=== PATIENT | female | born 1965 | race Caucasian/White ===

== ENCOUNTER 2018-07-02 16:15 | Inpatient (IN) | payer OTHER ==
[~2018-07-02] VITALS: Ht 162.6 cm; Wt 72.0 kg
[2018-07-02 16:54] LABS: BASOPHILS % (AUTO) 0.2 % (0-1); EOSINOPHILS % (AUTO) 0.4 % (0-6); HEMATOCRIT 37.2 % (35.0-45.0); HEMOGLOBIN 12.7 g/dl (12.0-16.0); LYMPHOCYTES # (AUTO) 0.2 X10'3 (1.1-4.8); LYMPHOCYTES % (AUTO) 1.8 % (21-51); MEAN CORPUSCULAR HEMOGLOBIN 31.3 PG (27.0-31.0); MEAN CORPUSCULAR HGB CONC 34.2 g/dL (33.0-36.5); MEAN CORPUSCULAR VOLUME 91.5 FL (78-98); MEAN PLATELET VOLUME 7.8 FL (7.4-10.4); MONOCYTES # (AUTO) 0.6 X10'3 (0-0.9); MONOCYTES % (AUTO) 4.7 % (2-12); NEUTROPHILS # (AUTO) 11.3 X10'3 (1.8-7.7); NEUTROPHILS % (AUTO) 92.9 % (42-75); PLATELET COUNT 211 X10'3 (140-440); RED BLOOD COUNT 4.06 X10'6 (4.20-5.60); WHITE BLOOD COUNT 12.1 X10'3 (4.5-11.0)
[2018-07-02 17:08] LABS: ALANINE AMINOTRANSFERASE 216 U/L (12-78); ALBUMIN 3.4 G/DL (3.4-5.0); ALBUMIN/GLOBULIN RATIO 0.9 (1.1-1.5); ALKALINE PHOSPHATASE 150 IU/L (46-116); ANION GAP 8 (8-16); ASPARTATE AMINO TRANSFERASE 111 U/L (10-37); BILIRUBIN,TOTAL 2.9 MG/DL (0.1-1.0); BLOOD UREA NITROGEN 16 MG/DL (7-18); BUN/CREATININE RATIO 13.8 (6.6-38.0); CALCIUM 8.9 MG/DL (8.5-10.1); CHLORIDE 102 MMOL/L (99-107); CREATININE 1.16 MG/DL (0.40-0.90); GLUCOSE 160 MG/DL (70-104); INR 1.3 INR; PARTIAL THROMBOPLASTIN TIME 35 SECONDS (22-32); POTASSIUM 3.9 MMOL/L (3.5-5.1); PROTHROMBIN TIME 13.2 SECONDS (9.0-12.0); SODIUM 135 MMOL/L (135-145); TOTAL CARBON DIOXIDE 24.9 MMOL/L (24-32); TOTAL PROTEIN 7.2 G/DL (6.4-8.2); eGFR 49 ML/MIN
[2018-07-02 17:46] LABS: CLARITY,URINE CLEAR (Clear); COLOR,URINE YELLOW (Yellow); GLUCOSE, URINE NEGATIVE (Neg); KETONES,URINE NEGATIVE (Neg); LEUKOCYTE ESTERASE ,URINE LARGE (Neg); OCCULT BLOOD,URINE SMALL (Neg); PH,URINE 6.5 (4.8-8.0); PROTEIN,URINE TRACE mg/dl (Neg); URINE HCG NEGATIVE (NEG); UROBILINOGEN,URINE 0.2 E.U/dL (0.2-1.0)
[2018-07-02 17:50] LABS: UA COLLECTION TYPE CLN CATCH MIDSTREAM
[2018-07-02 17:51] LABS: NITRITES, URINE NEGATIVE (Neg); RBC,URINE 0-2 /HPF (0-2); WBC,URINE 30-50 /HPF (0-4)
[2018-07-02 17:52] LABS: BACTERIA,URINE 1+ /HPF (Neg); MUCUS STRANDS NONE SEEN /LPF (Neg); SQUAMOUS EPITHELIAL CELL,UR FEW /LPF (FEW)
[2018-07-02] MEDS ORDERED: ondansetron/PF 4mg/2ml inj IV ONE ×2 (18:15→20:40)
[2018-07-02] MEDS ORDERED: CefTRIAXone/D5W-Rocephin 1gm 50 ML IV ONE (18:20)
[2018-07-02] MEDS ORDERED: normal saline 1000ML IV soln IVB ONE ×2 (18:20→20:30)
[2018-07-02] MEDS ORDERED: HYDROmorphone inj. 0.5 MG/0.5 ML DISP.SYRIN IV ONE ×2 (18:35→20:40)
[2018-07-02] MEDS ORDERED: iohexol 300mg/ml 100ml inj. ONE (19:12)
[2018-07-02] MEDS ORDERED: ACET-2119 PO (22:06)
[2018-07-02] MEDS ORDERED: LEVO500T2 PO (22:06)
[2018-07-02] MEDS ORDERED: FLO0.4C PO (22:06)
[2018-07-02] MEDS ORDERED: ONDA4TAB6 PO (22:06)
[2018-07-02] MEDS ORDERED: NALO12.5 (22:42)
[2018-07-02] MEDS ORDERED: PHEN-824 PO (22:42)
[2018-07-02] MEDS ORDERED: mag hydrox/Alum hydrox/simeth 30ml oral suspension PO PRN (22:45)
[2018-07-02] MEDS ORDERED: CADD PCA waste documentation MC PRN (22:55)
[2018-07-02] MEDS ORDERED: naloxone 0.4 mg/ml inj IV PRN (22:55)
[2018-07-03] VITALS (18 sets, daily range): BP systolic 88–150; BP diastolic 49–84
--- NOTE | 2018-07-03 00:30 | NUR ---
Received report from Kaylee FONG pt arrived via gurney, ambulated to bed, at bedside, will assess and orient pt to room
[2018-07-03] MEDS: ondansetron/PF 4mg/2ml inj IV PRN (00:39)
[2018-07-03] MEDS: magnesium hydroxide 30ml (MOM) UD suspension PO PRN (00:41)
[2018-07-03] MEDS: acetaminophen 325mg tablet PO PRN ×2 (00:42→08:26)
[2018-07-03] MEDS: HYDROmorphone/NS 1 mg/ml CADD 50 ML IV SCH ×13 (00:49→23:00)
[2018-07-03] MEDS: normal saline 1000ml 1,000 ML IV SCH ×2 (00:49→08:26)
[2018-07-03 05:59] LABS: BASOPHILS % (AUTO) 0.1 % (0-1); EOSINOPHILS % (AUTO) 0.3 % (0-6); HEMATOCRIT 31.2 % (35.0-45.0); HEMOGLOBIN 10.5 g/dl (12.0-16.0); LYMPHOCYTES # (AUTO) 0.2 X10'3 (1.1-4.8); LYMPHOCYTES % (AUTO) 3.2 % (21-51); MEAN CORPUSCULAR HEMOGLOBIN 31.4 PG (27.0-31.0); MEAN CORPUSCULAR HGB CONC 33.6 g/dL (33.0-36.5); MEAN CORPUSCULAR VOLUME 93.7 FL (78-98); MEAN PLATELET VOLUME 8.3 FL (7.4-10.4); MONOCYTES # (AUTO) 0.3 X10'3 (0-0.9); MONOCYTES % (AUTO) 4.4 % (2-12); NEUTROPHILS # (AUTO) 6.1 X10'3 (1.8-7.7); PLATELET COUNT 156 X10'3 (140-440); RED BLOOD COUNT 3.33 X10'6 (4.20-5.60); WHITE BLOOD COUNT 6.6 X10'3 (4.5-11.0)
[2018-07-03 06:14] LABS: ALANINE AMINOTRANSFERASE 123 U/L (12-78); ALBUMIN 2.6 G/DL (3.4-5.0); ALBUMIN/GLOBULIN RATIO 0.8 (1.1-1.5); ALKALINE PHOSPHATASE 122 IU/L (46-116); ANION GAP 9 (8-16); ASPARTATE AMINO TRANSFERASE 50 U/L (10-37); BILIRUBIN,TOTAL 1.8 MG/DL (0.1-1.0); BLOOD UREA NITROGEN 12 MG/DL (7-18); CHLORIDE 106 MMOL/L (99-107); CREATININE 1.09 MG/DL (0.40-0.90); GLUCOSE 106 MG/DL (70-104); POTASSIUM 3.8 MMOL/L (3.5-5.1); SODIUM 139 MMOL/L (135-145); TOTAL CARBON DIOXIDE 23.8 MMOL/L (24-32); TOTAL PROTEIN 5.9 G/DL (6.4-8.2); eGFR 53 ML/MIN
--- NOTE | 2018-07-03 06:28 | NUR ---
Gave report to Jany FONG pt is awake and alert on RA NS running@100mL/hr, Dilaudid CADD normal settings, lymphodema machine at bedside
[2018-07-03] MEDS ORDERED: docusate sod 100mg capsule PO SCH (08:00)
[2018-07-03] MEDS: lactulose 20gm/30ml cup PO SCH ×2 (08:24→20:12)
[2018-07-03] MEDS: phenazopyridine 100mg tablet PO SCH ×3 (08:25→23:57)
[2018-07-03] MEDS: tamsulosin 0.4mg capsule PO SCH (08:25)
--- NOTE | 2018-07-03 10:34 | NUR ---
Called pt. urologist in [place], [facility] office. [phone] to obtain lab blood and urine cultures. MD White requesting the name of the bacteria. Left a message with floor phone number and extension.
--- NOTE | 2018-07-03 11:15 | NUR ---
Urologist from [place] returned message. He will call surgical unit back when he has information available to him. PAGER ID: [phone] MESSAGE: [id number] LEONIE Em - pt has 100.7 axillary temp. Tylenol previously given for pain. Do you want to change the parameters of temp. for me to notify you? pt. requesting fleet enema. Awaiting [place] urologist 4 culture report Jany FONG 2140
[2018-07-03] MEDS ORDERED: iohexol 300 MG/1 ML 50ml polymer ONE (11:49)
[2018-07-03] MEDS ORDERED: ringers solution, lacted 1,000 ML IV SCH (11:52)
[2018-07-03] MEDS ORDERED: labetalol 20mg/4ml (5mg/ml) syringe IV PRN (11:55)
[2018-07-03] MEDS ORDERED: hydrALAZINE 20mg/ml inj. IV PRN (11:55)
[2018-07-03] MEDS ORDERED: ondansetron/PF 4mg/2ml inj IV PRN (11:55)
[2018-07-03] MEDS ORDERED: morphine 4 MG/ML inj SYRINge IV PRN ×2 (11:55)
[2018-07-03] MEDS: potassium Cl 20mEq in NS 1,000 ML IV SCH ×2 (12:00→23:57)
--- NOTE | 2018-07-03 13:34 | NUR ---
order caller urologist from [place] returned phone call with culture results for urine culture. E coli > 100,000 sensitive to Gentamicin and Macrobid. MD White made aware.
--- NOTE | 2018-07-03 13:39 | NUR ---
PAGER ID: [phone] MESSAGE: [id number] LEONIE Em Pt. still requesting fleet enema. Do you want her to have this before sx? loss prevention auditor urologist from [place] said urine culture was E coli >[id number] sensitive to Gentamicin and Macrobid. Jany FONG [id number]
--- NOTE | 2018-07-03 15:28 | NUR ---
Malnutrition consult: Pt admit w/ L kidney stone infection, UTI, and sepsis. Hx chronic constipation and prior anal skin CA s/p chemo/radiation/surgery per MD note. Currently NPO to OR at this time. LBM 3. Pt has no edema/wounds, no significant weakness noted. Unable to obtain wt loss hx since current wt is not scaled and pt in OR. Will monitor for diet advancement and pt wt hx once clinically stable from OR. At this time pt spears snot qualify for malnutrition but further information is pending. Will continue to monitor. Rec: 1. advance diet per MD to regular 2. monitor for ONS needs 3. scaled wt post-op 4. routine bowel care 5. weekly wts Addendum: 07/03/18 at [address] Amended: Links added.
[2018-07-03] MEDS ORDERED: acetaminophen 1,000mg/100ml IV 100 ML IV ONE (15:53)
[2018-07-03] MEDS ORDERED: LIDOcaine 2% (20mg/ml) 5ml vial ONE (15:54)
[2018-07-03] MEDS ORDERED: propofol inj 20 ML IV ONE (15:54)
[2018-07-03] MEDS ORDERED: ketorolac trometh. 30mg/ml inj. ONE (15:57)
--- NOTE | 2018-07-03 16:40 | NUR ---
Received from OR via SURGICAL BED , accompanied by Anesthesiologist DR SUN and report given by Anesthesiolgist. PT PLACED ON O2 AND MONITOR, S/P URETERAL STENT PLACEMENT, GENERAL ANESTH, PT AROUSES TO NAME CALLING AND DENIES ANY PAIN AT THIS TIME, WILL CONT TO ASSESS.
--- NOTE | 2018-07-03 17:20 | NUR ---
Report called to receiving nurse. Transferred via SURGICAL BED TO ROOM [facility]C [facility] . Special Issues communicated to receiving nurse. PT HAD DECLINED NARCOTICS DUE TO TROUBLE WITH CONSTPATION. PT RECEIVED TORADOL AND IV TYLENOL WITH HER ANESTH., SHE ALSO RECEIVED DECADRON AND ZOFRAN PREOP, GIVEN BY ANESTHESIA. SHE STATES SHE FEELS MUCH BETTER THAN BEFORE SURGERY, COMPLAINING OF HER EYES "BURNING", PT'S , JAVI, IS AT BEDSIDE FOR SUPPORT.
[2018-07-03] MEDS ORDERED: CefTRIAXone/D5W-Rocephin 1gm 50 ML IV SCH (18:00)
--- NOTE | 2018-07-03 19:04 | NUR ---
PT IS RESTING COMFORTABLY WITH VISITORS AT BEDSIDE. POST OP VITALS STABLE, LR RUNNING PER ORDER. GAVE REPORT TO MONICA FONG.
--- NOTE | 2018-07-03 19:05 | NUR ---
Patient in room [facility]. I have received report from AJIT Carmichael and had the opportunity to ask questions and assume patient care.
[2018-07-03] MEDS ORDERED: heparin, porcine 5000 units/ml vial SQ SCH (20:00)
[2018-07-03] MEDS: docusate sod 100mg capsule PO SCH (20:12)
[2018-07-03] MEDS: lactobacillus rhamnosus 10,000 MMU CELLS/CAPSULE PO SCH (20:12)
[2018-07-04] VITALS: BP 107/62
[2018-07-04] MEDS: HYDROmorphone/NS 1 mg/ml CADD 50 ML IV SCH ×12 (01:00→23:00)
[2018-07-04 05:31] LABS: BASOPHILS % (AUTO) 0 % (0-1); EOSINOPHILS % (AUTO) 0.1 % (0-6); HEMATOCRIT 29.8 % (35.0-45.0); HEMOGLOBIN 9.9 g/dl (12.0-16.0); LYMPHOCYTES # (AUTO) 0.4 X10'3 (1.1-4.8); LYMPHOCYTES % (AUTO) 9.6 % (21-51); MEAN CORPUSCULAR HEMOGLOBIN 31.2 PG (27.0-31.0); MEAN CORPUSCULAR HGB CONC 33.2 g/dL (33.0-36.5); MEAN CORPUSCULAR VOLUME 93.9 FL (78-98); MEAN PLATELET VOLUME 8.5 FL (7.4-10.4); MONOCYTES # (AUTO) 0.3 X10'3 (0-0.9); MONOCYTES % (AUTO) 7.1 % (2-12); NEUTROPHILS # (AUTO) 3.3 X10'3 (1.8-7.7); NEUTROPHILS % (AUTO) 83.2 % (42-75); PLATELET COUNT 133 X10'3 (140-440); RED BLOOD COUNT 3.17 X10'6 (4.20-5.60); RED CELL DISTRIBUTION WIDTH 13.1 % (11.5-14.5)
[2018-07-04 05:47] LABS: ALANINE AMINOTRANSFERASE 84 U/L (12-78); ALBUMIN 2.4 G/DL (3.4-5.0); ALBUMIN/GLOBULIN RATIO 0.7 (1.1-1.5); ALKALINE PHOSPHATASE 121 IU/L (46-116); ANION GAP 7 (8-16); ASPARTATE AMINO TRANSFERASE 26 U/L (10-37); BILIRUBIN,TOTAL 0.9 MG/DL (0.1-1.0); BLOOD UREA NITROGEN 14 MG/DL (7-18); BUN/CREATININE RATIO 15.6 (6.6-38.0); CALCIUM 8.3 MG/DL (8.5-10.1); CHLORIDE 107 MMOL/L (99-107); GLUCOSE 156 MG/DL (70-104); POTASSIUM 4.5 MMOL/L (3.5-5.1); SODIUM 139 MMOL/L (135-145); TOTAL CARBON DIOXIDE 24.7 MMOL/L (24-32); TOTAL PROTEIN 5.8 G/DL (6.4-8.2); eGFR 66 ML/MIN
--- NOTE | 2018-07-04 06:20 | NUR ---
Problems reprioritized. Patient report given, questions answered & plan of care reviewed with AJIT Carmichael.
[2018-07-04 07:30] VITALS: BP 122/62
[2018-07-04] MEDS: potassium Cl 20mEq in NS 1,000 ML IV SCH ×2 (08:00→10:19)
--- NOTE | 2018-07-04 08:25 | NUR ---
PAGER ID: [phone] MESSAGE: [id number] dorothy GIRARD, URINE CULTURE RESULTS: MDRO POSITIVE @ 0800 LUL FONG 7924 PT MADE AWARE OF LAB RESULTS WELL
[2018-07-04] MEDS: lactobacillus rhamnosus 10,000 MMU CELLS/CAPSULE PO SCH ×2 (08:30→19:34)
[2018-07-04] MEDS: lactulose 20gm/30ml cup PO SCH ×2 (08:30→19:34)
[2018-07-04] MEDS: phenazopyridine 100mg tablet PO SCH ×3 (08:30→23:57)
[2018-07-04] MEDS: docusate sod 100mg capsule PO SCH ×2 (08:30→19:34)
[2018-07-04] MEDS: tamsulosin 0.4mg capsule PO SCH (08:30)
--- NOTE | 2018-07-04 08:40 | NUR ---
PAGER ID: [phone] MESSAGE: [id number] PLATBECCA LOW 133- WHAT PARAMETERS TO HOLD HEPARIN INJECTION?
[2018-07-04] MEDS: meropenem inj 1 GM in normal saline 100ml IV soln 100 ML IV SCH ×3 (10:19→23:57)
[2018-07-04] MEDS: normal saline 1000ml 1,000 ML IV SCH (12:50)
--- NOTE | 2018-07-04 13:33 | NUR ---
F/u: MARGARET d/w RN for scaled wt given pt wt still stated. Given no weakness, no edema/wounds, and PO 50-75% regular diet s/p L ureteral stent placement w/ BMI 27 pt does not qualify for malnutrition at this time. Will monitor for new wt and additional criteria this admit. Addendum: 07/04/18 at [address] Amended: Links added.
[2018-07-04] MEDS: magnesium hydroxide 30ml (MOM) UD suspension PO PRN (14:57)
--- NOTE | 2018-07-04 18:40 | NUR ---
Patient in room [facility] 353. I have received report from Jany FONG and had the opportunity to ask questions and assume patient care. Patient has and daughter at bedside, both will be flying to [place] tomorrow morning, family saying goodbyes. Will provide emotional support to patient and continue to monitor.
--- NOTE | 2018-07-04 18:47 | NUR ---
pt. in stable condition resting comfortably in bed. Gave report to Kassidy FONG.
[2018-07-04 20:00] VITALS: BP 137/89
[2018-07-04] MEDS: ondansetron/PF 4mg/2ml inj IV PRN (20:59)
--- NOTE | 2018-07-04 23:00 | NUR ---
Problems reprioritized. Patient report given, questions answered & plan of care reviewed with Etta FONG.
--- NOTE | 2018-07-04 23:00 | NUR ---
Patient in room [facility] 353. I have received report from [place] and had the opportunity to ask questions and assume patient care.
[2018-07-05] MEDS ORDERED: famotidine 20mg tablet PO ONE (00:05)
[2018-07-05] MEDS: HYDROmorphone/NS 1 mg/ml CADD 50 ML IV SCH ×10 (01:00→19:00)
[2018-07-05] MEDS: normal saline 1000ml 1,000 ML IV SCH ×2 (04:03→17:49)
[2018-07-05 04:30] VITALS: BP 113/64
[2018-07-05 06:13] LABS: BASOPHILS % (AUTO) 0.2 % (0-1); EOSINOPHILS % (AUTO) 0.5 % (0-6); HEMATOCRIT 29.9 % (35.0-45.0); LYMPHOCYTES # (AUTO) 0.7 X10'3 (1.1-4.8); LYMPHOCYTES % (AUTO) 12.3 % (21-51); MEAN CORPUSCULAR HEMOGLOBIN 31.2 PG (27.0-31.0); MEAN CORPUSCULAR HGB CONC 33.6 g/dL (33.0-36.5); MEAN CORPUSCULAR VOLUME 93.1 FL (78-98); MEAN PLATELET VOLUME 8.7 FL (7.4-10.4); MONOCYTES # (AUTO) 0.5 X10'3 (0-0.9); MONOCYTES % (AUTO) 8.4 % (2-12); NEUTROPHILS # (AUTO) 4.8 X10'3 (1.8-7.7); NEUTROPHILS % (AUTO) 78.6 % (42-75); PLATELET COUNT 172 X10'3 (140-440); RED BLOOD COUNT 3.21 X10'6 (4.20-5.60); RED CELL DISTRIBUTION WIDTH 12.9 % (11.5-14.5); WHITE BLOOD COUNT 6.1 X10'3 (4.5-11.0)
[2018-07-05 06:25] LABS: ANION GAP 8 (8-16); CHLORIDE 110 MMOL/L (99-107); GLUCOSE 97 MG/DL (70-104); POTASSIUM 3.7 MMOL/L (3.5-5.1); SODIUM 143 MMOL/L (135-145); TOTAL CARBON DIOXIDE 24.6 MMOL/L (24-32)
[2018-07-05 06:26] LABS: ALANINE AMINOTRANSFERASE 115 U/L (12-78); ALBUMIN 2.3 G/DL (3.4-5.0); ALBUMIN/GLOBULIN RATIO 0.7 (1.1-1.5); ALKALINE PHOSPHATASE 130 IU/L (46-116); ASPARTATE AMINO TRANSFERASE 67 U/L (10-37); BILIRUBIN,TOTAL 0.7 MG/DL (0.1-1.0); BLOOD UREA NITROGEN 16 MG/DL (7-18); TOTAL PROTEIN 5.7 G/DL (6.4-8.2); eGFR 58 ML/MIN
--- NOTE | 2018-07-05 06:44 | NUR ---
Problems reprioritized. Patient report given, questions answered & plan of care reviewed with BORIS.
[2018-07-05 07:00] VITALS: BP 132/62
[2018-07-05] MEDS: phenazopyridine 100mg tablet PO SCH ×2 (07:32→16:07)
[2018-07-05] MEDS: docusate sod 100mg capsule PO SCH ×2 (07:32→20:00)
[2018-07-05] MEDS: lactobacillus rhamnosus 10,000 MMU CELLS/CAPSULE PO SCH ×2 (07:32→21:28)
[2018-07-05] MEDS: tamsulosin 0.4mg capsule PO SCH (07:32)
[2018-07-05] MEDS: famotidine 20mg tablet PO SCH ×2 (07:33→21:28)
[2018-07-05] MEDS: lactulose 20gm/30ml cup PO SCH ×2 (07:33→21:28)
[2018-07-05] MEDS: meropenem inj 1 GM in normal saline 100ml IV soln 100 ML IV SCH ×2 (07:37→16:07)
[2018-07-05 11:00] VITALS: BP 123/70
[2018-07-05] MEDS: acetaminophen 325mg tablet PO PRN (16:33)
--- NOTE | 2018-07-05 18:27 | NUR ---
Problems reprioritized. Patient report given, questions answered & plan of care reviewed with AIJT Germain.
--- NOTE | 2018-07-05 18:31 | NUR ---
Patient in room [facility] 353. I have received report from AJIT Rye and had the opportunity to ask questions and assume patient care. Addendum: 07/05/18 at 1833 by Gale Lewis RN Amended: Links added.
[2018-07-05 19:00] VITALS: BP 101/55
[2018-07-05 23:30] VITALS: BP 129/60
[2018-07-06] MEDS: phenazopyridine 100mg tablet PO SCH ×4 (00:14→23:35)
[2018-07-06] MEDS: meropenem inj 1 GM in normal saline 100ml IV soln 100 ML IV SCH ×4 (00:14→23:36)
[2018-07-06] MEDS: acetaminophen 325mg tablet PO PRN ×2 (00:21→17:35)
[2018-07-06 05:49] LABS: BASOPHILS % (AUTO) 0.1 % (0-1); EOSINOPHILS # (AUTO) 0.2 X10'3 (0-0.9); HEMATOCRIT 30.8 % (35.0-45.0); HEMOGLOBIN 10.5 g/dl (12.0-16.0); LYMPHOCYTES # (AUTO) 0.8 X10'3 (1.1-4.8); LYMPHOCYTES % (AUTO) 15.5 % (21-51); MEAN CORPUSCULAR HEMOGLOBIN 31.5 PG (27.0-31.0); MEAN CORPUSCULAR HGB CONC 34.3 g/dL (33.0-36.5); MEAN CORPUSCULAR VOLUME 91.9 FL (78-98); MEAN PLATELET VOLUME 8.4 FL (7.4-10.4); MONOCYTES # (AUTO) 0.8 X10'3 (0-0.9); MONOCYTES % (AUTO) 14.3 % (2-12); NEUTROPHILS # (AUTO) 3.6 X10'3 (1.8-7.7); NEUTROPHILS % (AUTO) 67.1 % (42-75); PLATELET COUNT 213 X10'3 (140-440); RED BLOOD COUNT 3.35 X10'6 (4.20-5.60); RED CELL DISTRIBUTION WIDTH 13.2 % (11.5-14.5); WHITE BLOOD COUNT 5.4 X10'3 (4.5-11.0)
[2018-07-06 06:04] LABS: ALANINE AMINOTRANSFERASE 112 U/L (12-78); ALBUMIN 2.4 G/DL (3.4-5.0); ALBUMIN/GLOBULIN RATIO 0.6 (1.1-1.5); ALKALINE PHOSPHATASE 162 IU/L (46-116); ANION GAP 5 (8-16); ASPARTATE AMINO TRANSFERASE 53 U/L (10-37); BILIRUBIN,TOTAL 0.7 MG/DL (0.1-1.0); BLOOD UREA NITROGEN 14 MG/DL (7-18); BUN/CREATININE RATIO 12.7 (6.6-38.0); CALCIUM 8.4 MG/DL (8.5-10.1); CHLORIDE 109 MMOL/L (99-107); GLUCOSE 94 MG/DL (70-104); POTASSIUM 3.5 MMOL/L (3.5-5.1); SODIUM 144 MMOL/L (135-145); TOTAL PROTEIN 6.1 G/DL (6.4-8.2); eGFR 52 ML/MIN
--- NOTE | 2018-07-06 06:36 | NUR ---
Problems reprioritized. Patient report given, questions answered & plan of care reviewed with AJIT Felipe. Addendum: 07/06/18 at 0637 by Gale Lewis RN Amended: Links added.
--- NOTE | 2018-07-06 07:02 | NUR ---
Patient in room [facility] 353. I have received report from Jessa FONG and had the opportunity to ask questions and assume patient care.
[2018-07-06 07:27] VITALS: BP 127/74
[2018-07-06] MEDS: lactulose 20gm/30ml cup PO SCH (08:00)
[2018-07-06] MEDS: docusate sod 100mg capsule PO SCH ×2 (08:00→20:00)
[2018-07-06] MEDS: famotidine 20mg tablet PO SCH ×2 (09:19→20:12)
[2018-07-06] MEDS: lactobacillus rhamnosus 10,000 MMU CELLS/CAPSULE PO SCH ×2 (09:19→20:12)
[2018-07-06] MEDS: tamsulosin 0.4mg capsule PO SCH (09:20)
[2018-07-06] MEDS ORDERED: LIDOcaine 2% 5ml jelly TOP PRN (10:00)
[2018-07-06 11:00] VITALS: BP 120/67
[2018-07-06] MEDS: furosemide 20MG tablet PO PRN (17:38)
[2018-07-06] MEDS ORDERED: LIDOcaine/PRILOcaine 5gm cream TP PRN (18:00)
--- NOTE | 2018-07-06 18:15 | NUR ---
Patient in room [facility] 353. I have received report from Matteo FONG and had the opportunity to ask questions and assume patient care. no signs of distress. call light in reach
--- NOTE | 2018-07-06 18:21 | NUR ---
Problems reprioritized. Patient report given, questions answered & plan of care reviewed with Brooke FONG.
--- NOTE | 2018-07-06 20:00 | NUR ---
educated pt to strain urine. she said that it isnt going to happen at this time due to loose and freq BM mixing in to her urine. will continue to monitor
[2018-07-06] MEDS: polyethylene glycol 3350 17gm powd pack PO SCH (20:12)
[2018-07-07 00:09] VITALS: BP 115/60
[2018-07-07] MEDS: acetaminophen 325mg tablet PO PRN ×3 (00:15→16:06)
[2018-07-07 05:08] LABS: BASOPHILS % (AUTO) 0.1 % (0-1); EOSINOPHILS # (AUTO) 0.2 X10'3 (0-0.9); EOSINOPHILS % (AUTO) 4.7 % (0-6); HEMATOCRIT 30.2 % (35.0-45.0); HEMOGLOBIN 10.3 g/dl (12.0-16.0); LYMPHOCYTES # (AUTO) 0.9 X10'3 (1.1-4.8); LYMPHOCYTES % (AUTO) 16.9 % (21-51); MEAN CORPUSCULAR VOLUME 91.1 FL (78-98); MEAN PLATELET VOLUME 8.2 FL (7.4-10.4); MONOCYTES # (AUTO) 0.7 X10'3 (0-0.9); MONOCYTES % (AUTO) 12.6 % (2-12); NEUTROPHILS # (AUTO) 3.5 X10'3 (1.8-7.7); NEUTROPHILS % (AUTO) 65.7 % (42-75); PLATELET COUNT 221 X10'3 (140-440); RED BLOOD COUNT 3.31 X10'6 (4.20-5.60); RED CELL DISTRIBUTION WIDTH 13.1 % (11.5-14.5); WHITE BLOOD COUNT 5.3 X10'3 (4.5-11.0)
[2018-07-07 05:29] LABS: ALANINE AMINOTRANSFERASE 90 U/L (12-78); ALBUMIN 2.3 G/DL (3.4-5.0); ALBUMIN/GLOBULIN RATIO 0.6 (1.1-1.5); ALKALINE PHOSPHATASE 152 IU/L (46-116); ANION GAP 6 (8-16); ASPARTATE AMINO TRANSFERASE 34 U/L (10-37); BILIRUBIN,TOTAL 0.5 MG/DL (0.1-1.0); BLOOD UREA NITROGEN 14 MG/DL (7-18); BUN/CREATININE RATIO 15.1 (6.6-38.0); CALCIUM 8.6 MG/DL (8.5-10.1); CHLORIDE 107 MMOL/L (99-107); CREATININE 0.93 MG/DL (0.40-0.90); GLUCOSE 116 MG/DL (70-104); POTASSIUM 3.7 MMOL/L (3.5-5.1); SODIUM 142 MMOL/L (135-145); TOTAL CARBON DIOXIDE 29.3 MMOL/L (24-32); TOTAL PROTEIN 5.9 G/DL (6.4-8.2); eGFR 63 ML/MIN
--- NOTE | 2018-07-07 06:11 | NUR ---
Problems reprioritized. Patient report given, questions answered & plan of care reviewed with Petrona FONG. no signs of distress, call light in reach. IV intact
[2018-07-07 08:00] VITALS: BP 122/73
[2018-07-07] MEDS: docusate sod 100mg capsule PO SCH ×2 (08:00→20:00)
[2018-07-07] MEDS: phenazopyridine 100mg tablet PO SCH ×3 (08:42→23:54)
[2018-07-07] MEDS: famotidine 20mg tablet PO SCH ×2 (08:43→20:48)
[2018-07-07] MEDS: lactobacillus rhamnosus 10,000 MMU CELLS/CAPSULE PO SCH ×2 (08:43→20:48)
[2018-07-07] MEDS: tamsulosin 0.4mg capsule PO SCH (08:43)
[2018-07-07] MEDS: meropenem inj 1 GM in normal saline 100ml IV soln 100 ML IV SCH ×3 (08:45→23:22)
[2018-07-07 12:00] VITALS: BP 110/69
[2018-07-07] MEDS ORDERED: ibuprofen 200mg tablet PO PRN (12:15)
[2018-07-07] MEDS ORDERED: zolpidem 5mg tablet PO PRN (12:55)
--- NOTE | 2018-07-07 14:31 | NUR ---
reassessment: Pt PO 50% avg regular diet not meeting needs s/p ureteral stent placement. No edema/perineal radiation dermatitis r/t CA hx per MD note. LBM 07/06. MARGARET d/w RN for MVI per MD approval given low PO and skin healing needs w/ previous chemo/radiation hx. Ensure enlive BIDBD added to meals for additional protein/energy needs; MD and dietary notified. Will continue to monitor. Rec: 1. advance diet per MD to regular 2. ensure enlive BIDBD 3. scaled wt post-op 4. routine bowel care 5. weekly wts Addendum: 07/07/18 at [address] Amended: Links added.
[2018-07-07] MEDS ORDERED: LIDOCAINE 5% OINTMENT 35GM TP PRN (14:40)
[2018-07-07] MEDS: furosemide 20MG tablet PO PRN (15:58)
[2018-07-07] MEDS ORDERED: lactose-reduced food (Ensure Enlive) - 237ml bottle PO SCH (18:00)
--- NOTE | 2018-07-07 18:15 | NUR ---
Patient in room [facility]. I have received report from Petrona FONG and had the opportunity to ask questions and assume patient care. no signs of distress. IV intact. call light inreach
--- NOTE | 2018-07-07 19:39 | NUR ---
Problems reprioritized. Patient report given, questions answered & plan of care reviewed with SEDA FONG.
[2018-07-07 20:00] VITALS: BP 115/72
[2018-07-07] MEDS: polyethylene glycol 3350 17gm powd pack PO SCH (20:48)
[2018-07-08] VITALS: BP 119/74
--- NOTE | 2018-07-08 06:10 | NUR ---
Problems reprioritized. Patient report given, questions answered & plan of care reviewed with Jaki FONG. no signs of distress. call light in reach, IV intact
--- NOTE | 2018-07-08 06:30 | NUR ---
Patient in room [facility] 353. I have received report from AJIT Cox and had the opportunity to ask questions and assume patient care. Patient awake, alert, and oriented at this time. Call light and items of frequent use in reach of patient.
[2018-07-08 08:00] VITALS: BP 108/72
[2018-07-08] MEDS: docusate sod 100mg capsule PO SCH ×2 (08:00→20:00)
[2018-07-08] MEDS: famotidine 20mg tablet PO SCH ×2 (08:00→20:53)
[2018-07-08] MEDS: lactobacillus rhamnosus 10,000 MMU CELLS/CAPSULE PO SCH ×2 (09:10→20:53)
[2018-07-08] MEDS: tamsulosin 0.4mg capsule PO SCH (09:10)
[2018-07-08] MEDS: multivitamins, therapeutics tablet PO SCH (09:11)
[2018-07-08] MEDS: phenazopyridine 100mg tablet PO SCH ×3 (09:12→23:10)
[2018-07-08] MEDS: meropenem inj 1 GM in normal saline 100ml IV soln 100 ML IV SCH ×3 (09:16→23:09)
[2018-07-08 11:00] VITALS: BP 120/80
[2018-07-08] MEDS ORDERED: zolpidem 5mg tablet PO PRN (12:35)
--- NOTE | 2018-07-08 15:44 | NUR ---
Unsuccessful attempts x 2 for extended PIV to right arm cephalic and basilic vein very painful for patient. Enc. patient to drink fluids and will attempt again in am. Addendum: 07/08/18 at 1546 by Karely Ho RN Amended: Links added.
[2018-07-08 18:00] VITALS: BP 111/64
--- NOTE | 2018-07-08 18:10 | NUR ---
Patient in room [facility] 353. I have received report from Krissy FONG and had the opportunity to ask questions and assume patient care. at bedside. no signs of distress. call light in reach. will continue to monitor.
--- NOTE | 2018-07-08 18:18 | NUR ---
Problems reprioritized. Patient report given, questions answered & plan of care reviewed with AJIT Cox.
[2018-07-08] MEDS: polyethylene glycol 3350 17gm powd pack PO SCH (20:53)
[2018-07-09] VITALS: BP 123/76
[2018-07-09] MEDS ORDERED: normal saline 1000ml 1,000 ML IV ONE (05:30)
--- NOTE | 2018-07-09 06:17 | NUR ---
Problems reprioritized. Patient report given, questions answered & plan of care reviewed with Matteo RN. pt resting, no signs of distress. bolus infusing
--- NOTE | 2018-07-09 06:39 | NUR ---
Patient in room [facility]. I have received report from Brooke FONG and had the opportunity to ask questions and assume patient care.
[2018-07-09 07:39] VITALS: BP 110/65
[2018-07-09] MEDS: docusate sod 100mg capsule PO SCH (08:00)
[2018-07-09] MEDS: lactobacillus rhamnosus 10,000 MMU CELLS/CAPSULE PO SCH (08:32)
[2018-07-09] MEDS: meropenem inj 1 GM in normal saline 100ml IV soln 100 ML IV SCH ×2 (08:33→16:04)
[2018-07-09] MEDS: phenazopyridine 100mg tablet PO SCH ×2 (08:36→16:02)
[2018-07-09] MEDS: famotidine 20mg tablet PO SCH (08:37)
[2018-07-09] MEDS: multivitamins, therapeutics tablet PO SCH (08:37)
[2018-07-09] MEDS: tamsulosin 0.4mg capsule PO SCH (08:37)
--- NOTE | 2018-07-09 09:40 | NUR ---
Extended PIV inserted to left upper arm basilic vein x 2 attempts using ultrasound. Moncho well Addendum: 07/09/18 at 0941 by Karely Ho RN Amended: Links added.
[2018-07-09 11:00] VITALS: BP 109/60
[2018-07-09] MEDS: acetaminophen 325mg tablet PO PRN (12:03)
[2018-07-09] MEDS ORDERED: FLO0.4C PO (14:57)
[2018-07-09] MEDS ORDERED: ERTA1VIA4 IV (14:57)
[2018-07-09] MEDS ORDERED: PHEN-824 PO (16:25)
--- NOTE | 2018-07-09 17:45 | NUR ---
Patient discharge was verbally given to patient, IV site was taken out at discharge IV canula was intact and whole upon dc., and extended was left in for IV antibiotic therapy. Patient discharge with IV therapy starting tomorrow at [facility]. Patient left with all belongings at discharge. Patient family help with belongings and transportation home.
== END 2018-07-09 18:30 | disposition home IV services (08) | DRG 854 ==
LOC: EDBD 16:16 → ER 16:16 → ED HOLD 22:42 → SUR 3N 07-03 00:31
PROVIDERS: ADMIT Internal Medicine; ATTEND Internal Medicine
PROC: BW211ZZ Computerized Tomography (CT Scan) of Abdomen and Pelvis using Low Osmolar Contrast (ICD-10-PCS; 2018-07-02)
PROC: BT1F1ZZ Fluoroscopy of Left Kidney, Ureter and Bladder using Low Osmolar Contrast (ICD-10-PCS; 2018-07-03)
PROC: 0T778DZ Dilation of Left Ureter with Intraluminal Device, Via Natural or Artificial Opening Endoscopic (ICD-10-PCS; principal; 2018-07-03 15:55)
PROC: 05HY33Z Insertion of Infusion Device into Upper Vein, Percutaneous Approach (ICD-10-PCS; 2018-07-09)
PROC: B54NZZA Ultrasonography of Left Upper Extremity Veins, Guidance (ICD-10-PCS; 2018-07-09)
DX: A41.51 Sepsis due to Escherichia coli [E. coli] (principal); N13.6 Pyonephrosis; L59.8 Other specified disorders of the skin and subcutaneous tissue related to radiation; Z16.12 Extended spectrum beta lactamase (ESBL) resistance; R51 Headache; I89.0 Lymphedema, not elsewhere classified; T45.1X5A Adverse effect of antineoplastic and immunosuppressive drugs, initial encounter; D69.6 Thrombocytopenia, unspecified; D72.810 Lymphocytopenia; K59.09 Other constipation; M34.9 Systemic sclerosis, unspecified; M35.00 Sjogren syndrome, unspecified; Z85.72 Personal history of non-Hodgkin lymphomas; Z88.2 Allergy status to sulfonamides; Z90.710 Acquired absence of both cervix and uterus; Z92.21 Personal history of antineoplastic chemotherapy; Z92.3 Personal history of irradiation; Z79.899 Other long term (current) drug therapy; Z85.048 Personal history of other malignant neoplasm of rectum, rectosigmoid junction, and anus; Y92.89 Other specified places as the place of occurrence of the external cause
CPT/HCPCS: 96365; 96366; 96375; 96376; 99285; Z7506; 36415; 74177; 80053; 81001; 81025; 84145; 85025; 85610; 85730; 87040; 87070; 87075; 87077; 87088; 87186; 93971; A4402; C1758; C1769; C2617; G0378; J0131; J0696; J1170; J1644; J1885; J2001; J2185; J2405; J2704; J7030; J7120; Q9967